=== PATIENT | male | born 1995 | race Caucasian/White ===

== ENCOUNTER 2017-07-06 18:18 | Emergency (ER) | payer SELFPAY ==
[2017-07-06 18:38] VITALS: PULSE 68
[2017-07-06] MEDS ORDERED: SODIUM CHLORIDE 0.9% 1,000 ML IV STA (18:52)
--- NOTE | 2017-07-06 19:05 | ED ---
Extremity Problem HPI - General Chief complaint: Extremity Problem,Nontraumatic Stated complaint: Poss Blood Clot Time Seen by Provider: 07/06/17 18:36 Source: patient Mode of arrival: ambulatory Limitations: no limitations - History of Present Illness Initial comments: 22-year-old male patient presents for evaluation of right calf pain and cramping. Patient states he has had this pain for the last 2 days. Patient states he had sudden onset of a sharp leg cramp 2 days ago, states that he did have to stretch and work it out. He states he has been having pain and problems with the leg since then. States that the pain is worse in the morning. States that his left calf is becoming more weak as he is compensating for the pain in the right. Patient does report bruising over the anterior lower leg, but denies any known injury. Sates he does lift heavy things and moves a lot of boxes at work and it is possible that he hit it on something there. Patient states he did have diarrhea for 2 days last week. He states he has felt dehydrated and has been trying to increase his liquids more. He also reports a pain to the left side of his neck, that worsens when he turns his head. He states this lasted approximately 40 minutes and has resolved at this time. Patient denies any recent rash, fever, chills, shortness breath, chest pain, palpitations, abdominal pain, nausea, vomiting, back pain, numbness, tingling, dizziness, weakness, hematuria, dysuria, urinary urgency, urinary frequency, headache, visual changes, or any other complaints. - Related Data Home Medications Medication Instructions Recorded Confirmed No Known Home Medications [No 07/06/17 07/06/17 Known Home Medications] Allergies Allergy/AdvReac Type Severity Reaction Status Date / Time No Known Allergies Allergy Verified 07/06/17 19:08 Review of Systems ROS Statement: Those systems with pertinent positive or pertinent negative responses have been documented in the HPI. ROS Other: All systems not noted in ROS Statement are negative. Past Medical History Past Medical History: No Reported History History of Any Multi-Drug Resistant Organisms: None Reported Past Surgical History: No Surgical Hx Reported Past Psychological History: No Psychological Hx Reported Smoking Status: Never smoker Past Alcohol Use History: None Reported Past Drug Use History: None Reported General Exam Limitations: no limitations General appearance: alert, in no apparent distress, other (This is a developed, thin-appearing, adult male in no acute distress. Vital signs upon presentation her temperature 98.0F, pulse 68, respirations 18, blood pressure 142/83, pulse ox 97% on room air) Eye exam: Present: normal appearance, PERRL, EOMI. Absent: scleral icterus, conjunctival injection, periorbital swelling ENT exam: Present: normal exam, normal oropharynx, mucous membranes moist Neck exam: Present: normal inspection. Absent: tenderness, meningismus, lymphadenopathy Respiratory exam: Present: normal lung sounds bilaterally. Absent: respiratory distress, wheezes, rales, rhonchi, stridor Cardiovascular Exam: Present: regular rate, normal rhythm, normal heart sounds. Absent: systolic murmur, diastolic murmur, rubs, gallop, clicks Extremities exam: Present: full ROM, tenderness (Tenderness over the right calf) , normal capillary refill, other (Right anterior lower leg bruising and light brown to blue in color. Skin otherwise is pink, warm, and dry. Cap refill less than 3 seconds. Post tibial and pedal pulses 2+ and equal bilaterally. Temperature is uniform throughout the extremity and equal to the left. Range of motion of ankle and knee without difficulty or limitation.). Absent: pedal edema, joint swelling, calf tenderness Neurological exam: Present: alert, oriented X3, CN II-XII intact Psychiatric exam: Present: normal affect, normal mood Skin exam: Present: warm, dry, intact, normal color. Absent: rash Course Vital Signs 07/06/17 07/06/17 18:33 20:19 Temperature 98.0 F 97.9 F Pulse Rate 68 68 Respiratory 18 16 Rate Blood Pressure 142/83 133/80 O2 Sat by Pulse 97 98 Oximetry Medical Decision Making - Medical Decision Making 22-year-old male patient presented for evaluation of right calf cramping and pain 2 days. Patient was seen at urgent care and instructed to report here for ultrasound of the leg for possible DVT. Patient reported he did have diarrhea for 2 days, and has been feeling more tired and rundown than usual. Lab work was reviewed and was unremarkable. Ultrasound of the right lower extremity was performed was negative for any acute DVT. Patient was given IV fluids here, states he feels somewhat better. He will be discharged home to follow up with his primary care physician for recheck in 1-2 days. He is instructed to return here immediately for any new, worsening, or concerning symptoms. He verbalizes understanding and agrees with this plan. - Lab Data Result diagrams: 07/06/17 19:05 07/06/17 19:05 Lab Results 07/06/17 07/06/17 Range/Units 19:05 19:05 WBC 7.3 (4.0-11.0) k/uL RBC 5.10 (4.30-5.90) m/uL Hgb 16.3 (13.0-17.5) gm/dL Hct 48.9 (39.0-53.0) % MCV 95.8 (80.0-100.0) fL MCH 31.8 (25.0-35.0) pg MCHC 33.2 (31.0-37.0) g/dL RDW 11.6 (11.5-15.5) % Plt Count 224 (150-450) k/uL Neutrophils % 63 % Lymphocytes % 28 % Monocytes % 5 % Eosinophils % 1 % Basophils % 1 % Neutrophils # 4.6 (1.3-7.7) k/uL Lymphocytes # 2.1 (1.0-4.8) k/uL Monocytes # 0.4 (0-1.0) k/uL Eosinophils # 0.1 (0-0.7) k/uL Basophils # 0.0 (0-0.2) k/uL Sodium 142 (137-145) mmol/L Potassium 4.4 (3.5-5.1) mmol/L Chloride 106 (98-107) mmol/L Carbon Dioxide 24 (22-30) mmol/L Anion Gap 12 mmol/L BUN 13 (9-20) mg/dL Creatinine 0.94 (0.66-1.25) mg/dL Est GFR (MDRD) Af Amer >60 (>60 ml/min/1.73 sqM) Est GFR (MDRD) Non-Af >60 (>60 ml/min/1.73 sqM) Glucose 85 (74-99) mg/dL Calcium 9.8 (8.4-10.2) mg/dL Total Bilirubin 0.8 (0.2-1.3) mg/dL AST 31 (17-59) U/L ALT 47 (21-72) U/L Alkaline Phosphatase 80 (38-126) U/L Total Protein 8.0 (6.3-8.2) g/dL Albumin 5.0 (3.5-5.0) g/dL - Radiology Data Radiology results: report reviewed Ultrasound of the right lower extremity report reviewed in its entirety, impression by Dr. Rodriguez shows no ultrasound evidence for acute DVT in the right lower extremity. Disposition Clinical Impression: Muscle cramping Disposition: HOME SELF-CARE Condition: Good Instructions: Leg Cramps (ED) Additional Instructions: Increase fluids. Follow-up with her primary care physician for recheck in 1-2 days. Return here immediately for any new, worsening, or concerning symptoms. Referrals: None,Stated [Primary Care Provider] - 1-2 days Time of Disposition: 20:04
[2017-07-06 19:19] LABS: Basophils % (A) 1 %; CH 31.8; CHCM 33.3; Eosinophils # (A) 0.1 k/uL (0-0.7); Eosinophils % (A) 1 %; HCT 48.9 % (39.0-53.0); HDW 2.17; HGB 16.3 gm/dL (13.0-17.5); Luc # (Auto) 0.12; Luc % (Auto) 2; Lymphocytes # (A) 2.1 k/uL (1.0-4.8); Lymphocytes % (A) 28 %; MCH 31.8 pg (25.0-35.0); MCHC 33.2 g/dL (31.0-37.0); MCV 95.8 fL (80.0-100.0); Mean Platelet Volume 9.4; Monocytes # (A) 0.4 k/uL (0-1.0); Monocytes % (A) 5 %; Neutrophils # (A) 4.6 k/uL (1.3-7.7); Neutrophils % (A) 63 %; RDW 11.6 % (11.5-15.5); WBC 7.3 k/uL (4.0-11.0); WBC (Perox) 7.08
[2017-07-06 19:32] LABS: ALT 47 U/L (21-72); AST 31 U/L (17-59); Alkaline Phosphatase 80 U/L (38-126); Anion Gap 12 mmol/L; Blood Urea Nitrogen 13 mg/dL (9-20); Calcium 9.8 mg/dL (8.4-10.2); Carbon Dioxide 24 mmol/L (22-30); Chloride 106 mmol/L (98-107); Glucose 85 mg/dL (74-99); Non-African American GFR(MDRD) >60 (>60 ml/min/1.73 sqM); Potassium 4.4 mmol/L (3.5-5.1); Sodium 142 mmol/L (137-145); Total Bilirubin 0.8 mg/dL (0.2-1.3)
--- NOTE | 2017-07-06 19:52 | US ---
EXAMINATION TYPE: US venous doppler duplex LE RT DATE OF EXAM: 07/06/2017 6:54 PM COMPARISON: NONE CLINICAL HISTORY: Pain. rt leg cramps SIDE PERFORMED: Right TECHNIQUE: The lower extremity deep venous system is examined utilizing real time linear array sonog ame with graded compression, doppler sonography and color-flow sonography. VESSELS IMAGED: External Iliac Vein (EIV) Common Femoral Vein Deep Femoral Vein Greater Saphenous Vein * Femoral Vein Popliteal Vein Small Saphenous Vein * Proximal Calf Veins (* superficial vessels) Right Leg: Negative for DVT Grayscale, color doppler, spectral doppler imaging performed of the deep veins of the right lower ext remity. There is normal flow, compressibility, vascular waveforms. IMPRESSION: No ultrasound evidence for acute DVT in the right lower extremity.
[2017-07-06 20:20] VITALS: BP 133/80; RESP 16; TEMP 97.9
== END 2017-07-06 20:20 | disposition home or self-care (01) ==
LOC: EC 18:18
DX: M79.604 Pain in right leg (principal)
CPT/HCPCS: 36415; 80053; 85025; 96360; 99283

== ENCOUNTER 2018-06-01 13:53 | Emergency (ER) | payer BC ==
[2018-06-01] MEDS ORDERED: IBUPROFEN 800 MG TAB PO STA (15:18)
[2018-06-01] MEDS ORDERED: DEXAMETHASONE 4 MG TAB PO STA (15:18)
--- NOTE | 2018-06-01 15:22 | ED ---
General Adult HPI - General Chief complaint: Fever Stated complaint: Fever/103 Source: patient Mode of arrival: ambulatory Limitations: no limitations - History of Present Illness Initial comments: Dictation was produced using [employer] dictation software. please excuse any grammatical, word or spelling errors. Chief Complaint: 23-year-old malepast medical history presents with fever and sore throat 3 days. History of Present Illness: Patient states he's noted the symptoms for the past 3 days. He complains of mild sore throat with some drainage denies any cough. He does also complain of lymphadenopathy. The ROS documented in this emergency department record has been reviewed and confirmed by me. Those systems with pertinent positive or negative responses have been documented in the HPI. All other systems are other negative and/or noncontributory. - Related Data Previous Rx's Medication Instructions Recorded Ibuprofen [Motrin] 600 mg PO Q6HR PRN #24 tab 06/01/18 Penicillin V Potassium [Pen Vee K] 500 mg PO BID #20 tablet 06/01/18 Allergies Allergy/AdvReac Type Severity Reaction Status Date / Time No Known Allergies Allergy Verified 06/01/18 14:02 Review of Systems ROS Statement: Those systems with pertinent positive or pertinent negative responses have been documented in the HPI. ROS Other: All systems not noted in ROS Statement are negative. Past Medical History Past Medical History: No Reported History History of Any Multi-Drug Resistant Organisms: None Reported Past Surgical History: No Surgical Hx Reported Past Psychological History: No Psychological Hx Reported Smoking Status: Never smoker Past Alcohol Use History: None Reported Past Drug Use History: None Reported General Exam - General Exam Comments Initial Comments: PHYSICAL EXAM: General Impression: Alert and oriented x3, not in acute distress HEENT: Normocephalic atraumatic, extra-ocular movements intact, pupils equal and reactive to light bilaterally, dry mucous membranes, bilateral tonsillar exudates Cardiovascular: Heart regular rate and rhythm, S1&S2 audible, no murmurs, rubs or gallops Chest: Lungs clear to auscultation bilaterally, no rhonchi, no wheeze, no rales Abdomen: Bowel sounds present, abdomen soft, non-tender, non-distended, no organomegaly Musculoskeletal: Pulses present and equal in all extremities, no peripheral edema Motor: Power 5/5 bilaterally, no focal deficits noted Neurological: CN II-XII grossly intact, no focal motor or sensory deficits noted Skin: Intact with no visualized rashes Psych: Normal affect and mood Limitations: no limitations Course Vital Signs 06/01/18 13:59 Temperature 102.5 F H Pulse Rate 110 H Respiratory 18 Rate Blood Pressure 128/71 O2 Sat by Pulse 95 Oximetry Medical Decision Making - Medical Decision Making ED course:-year-old male with clinical presentation consistent with strep pharyngitis. Centor criteria is high. No indication for rapid strep testing. He will receive antibiotics. Vital signs upon arrival shows temperature 102.5, heart rate of 110. Patient given steroids and Motrin for fever and throat pain. Patient reevaluated with improvement of symptoms. He is discharged with prescription for antibiotics, Motrin. Advised follow [facility] primary care physician upon discharge. Patient understandable agreeable to plan. Discussed with patient that his symptoms may represent viral pharyngitis Megace symptoms should be self-limiting. Or less, he is told to follow-up with his primary care physician. Disposition Clinical Impression: Pharyngitis Disposition: HOME SELF-CARE Condition: Good Instructions: Fever in Adults (ED) Prescriptions: Ibuprofen [Motrin] 600 mg PO Q6HR PRN #24 tab PRN Reason: Fever Penicillin V Potassium [Pen Vee K] 500 mg PO BID #20 tablet Is patient prescribed a controlled substance at d/c from ED?: No Referrals: None,Stated [Primary Care Provider] - 1-2 days Time of Disposition: 15:34
[2018-06-01 15:47] VITALS: BP 130/62; PULSE 104; RESP 16; TEMP 101.9
== END 2018-06-01 16:00 | disposition home or self-care (01) ==
LOC: EC 13:53
DX: J02.9 Acute pharyngitis, unspecified (principal); R50.9 Fever, unspecified
CPT/HCPCS: 99283; J8540

== ENCOUNTER 2020-04-21 21:37 | Emergency (ER) | payer BC, OTHER ==
[2020-04-21 21:42] VITALS: RESP 18; TEMP 98.6
[2020-04-21 22:35] LABS: Basophils % (A) 1 %; Eosinophils # (A) 0.6 k/uL (0-0.7); Eosinophils % (A) 7 %; HCT 43.7 % (39.0-53.0); HGB 14.3 gm/dL (13.0-17.5); Lymphocytes # (A) 2.2 k/uL (1.0-4.8); Lymphocytes % (A) 29 %; MCH 30.8 pg (25.0-35.0); MCHC 32.6 g/dL (31.0-37.0); MCV 94.4 fL (80.0-100.0); Mean Platelet Volume 9.5; Monocytes # (A) 0.3 k/uL (0-1.0); Monocytes % (A) 4 %; Neutrophils # (A) 4.3 k/uL (1.3-7.7); Neutrophils % (A) 57 %; Platelet Count 215 k/uL (150-450); RBC 4.63 m/uL (4.30-5.90); WBC 7.7 k/uL (3.8-10.6)
[2020-04-21 22:48] LABS: ALT 17 U/L (4-49); AST 21 U/L (17-59); African American GFR (CKD) >90 (>60 ml/min/1.73 sqM); Albumin 4.4 g/dL (3.5-5.0); Alkaline Phosphatase 79 U/L (38-126); Anion Gap 8 mmol/L; Blood Urea Nitrogen 11 mg/dL (9-20); Calcium 8.9 mg/dL (8.4-10.2); Carbon Dioxide 25 mmol/L (22-30); Chloride 105 mmol/L (98-107); Glucose 100 mg/dL (74-99); Non-African American GFR(CKD) >90 (>60 ml/min/1.73 sqM); Potassium 4.2 mmol/L (3.5-5.1); Sodium 138 mmol/L (137-145); Total Bilirubin 0.3 mg/dL (0.2-1.3); Total Protein 6.7 g/dL (6.3-8.2)
--- NOTE | 2020-04-21 23:51 | ED ---
General Adult HPI - General Chief complaint: Neuro Symptoms/Deficit Stated complaint: chin numbness Time Seen by Provider: 04/21/20 21:51 Source: patient Mode of arrival: ambulatory Limitations: no limitations - History of Present Illness Initial comments: 25-year-old male patient presents to the emergency department today for evaluation of numbness and tingling to the left side of his chin. Patient states this started approximately an hour prior to arrival. States it is on the left side of his chin and going down into his neck. Denies any facial droop. He denies numbness or tingling to his tongue or lips. Denies any numbness, tingling, weakness to his extremities. He is also reporting cough with nasal congestion as well as body aches. States that he has been having some intermittent chest pain. States today he felt a pop in his chest and it did seem to ease the pain somewhat. Denies taking any medication for his symptoms. Denies any recent head injury. Denies any new medications. Patient denies any recent rash, fever, chills, abdominal pain, nausea, vomiting, diarrhea, constipation, back pain, numbness, tingling, dizziness, weakness, hematuria, dysuria, urinary urgency, urinary frequency, headache, visual changes, or any other complaints. - Related Data Previous Rx's Medication Instructions Recorded Ibuprofen [Motrin] 600 mg PO Q6HR PRN #24 tab 06/01/18 Penicillin V Potassium [Pen Vee K] 500 mg PO BID #20 tablet 06/01/18 Allergies Allergy/AdvReac Type Severity Reaction Status Date / Time No Known Allergies Allergy Verified 04/21/20 21:42 Review of Systems ROS Statement: Those systems with pertinent positive or pertinent negative responses have been documented in the HPI. ROS Other: All systems not noted in ROS Statement are negative. Past Medical History Past Medical History: No Reported History Additional Past Medical History / Comment(s): pericarditis History of Any Multi-Drug Resistant Organisms: None Reported Past Surgical History: No Surgical Hx Reported Past Psychological History: No Psychological Hx Reported Smoking Status: Never smoker Past Alcohol Use History: Occasional Past Drug Use History: None Reported General Exam Limitations: no limitations General appearance: alert, in no apparent distress, other (This is a well- developed, well-nourished adult male patient in no acute distress. Vital signs upon presentation are temperature 98.6F, pulse 76, respirations 18, blood pressure 130/87, pulse ox 97% on room air.) Eye exam: Present: normal appearance, PERRL, EOMI. Absent: scleral icterus, conjunctival injection, periorbital swelling Respiratory exam: Present: normal lung sounds bilaterally. Absent: respiratory distress, wheezes, rales, rhonchi, stridor Cardiovascular Exam: Present: regular rate, normal rhythm, normal heart sounds. Absent: systolic murmur, diastolic murmur, rubs, gallop, clicks GI/Abdominal exam: Present: soft, normal bowel sounds. Absent: distended, tenderness, guarding, rebound, rigid Neurological exam: Present: alert, oriented X3, CN II-XII intact Expanded Patient oriented to: Present: person, place, time Cranial nerves: EOM's Intact: Normal, Tongue Deviation: Normal, Nystagmus: Normal, Facial Sensation: Abnormal Left Motor strength exam: RUE: 5, LUE: 5, RLE: 5, LLE: 5 Psychiatric exam: Present: normal affect, normal mood Skin exam: Present: warm, dry, intact, normal color. Absent: rash Course Vital Signs 04/21/20 04/22/20 21:38 00:14 Temperature 98.6 F Pulse Rate 76 72 Respiratory 18 18 Rate Blood Pressure 130/87 125/78 O2 Sat by Pulse 97 98 Oximetry EKG Findings - EKG Comments: EKG Findings:: EKG obtained at 2223 shows normal sinus rhythm with a sinus arrhythmia. Ventricular rate is 67, VT interval 146, QRS duration 82, QT 374, QTC 395. No evidence of ST elevation or depression. Medical Decision Making - Medical Decision Making 25-year-old male patient presents to the emergency department today for evaluation of tingling to the left chin. Physical examination is unremarkable. He is neurologically intact focal deficits. He is otherwise healthy. Labs reviewed and are unremarkable. EKG shows normal sinus rhythm. Lungs are clear to auscultation. We did test for COVID-19. Patient does not have insurance and was quite concerned about the cost of his visit. For this reason along with his normal neurologic exam we did hold CT at this time. He will be discharged to follow up with this primary care physician for recheck in 1-2 days. We did discuss return parameters in detail, he is urged to return if his symptoms worsen or change, we did perform computed tomography scan at that time. He verbalizes understanding and agrees this plan. - Lab Data Result diagrams: 04/21/20 22:15 04/21/20 22:15 Lab Results 04/21/20 04/21/20 04/21/20 Range/Units 22:15 22:15 22:15 WBC 7.7 (3.8-10.6) k/uL RBC 4.63 (4.30-5.90) m/uL Hgb 14.3 (13.0-17.5) gm/dL Hct 43.7 (39.0-53.0) % MCV 94.4 (80.0-100.0) fL MCH 30.8 (25.0-35.0) pg MCHC 32.6 (31.0-37.0) g/dL RDW 12.0 (11.5-15.5) % Plt Count 215 (150-450) k/uL Neutrophils % 57 % Lymphocytes % 29 % Monocytes % 4 % Eosinophils % 7 % Basophils % 1 % Neutrophils # 4.3 (1.3-7.7) k/uL Lymphocytes # 2.2 (1.0-4.8) k/uL Monocytes # 0.3 (0-1.0) k/uL Eosinophils # 0.6 (0-0.7) k/uL Basophils # 0.0 (0-0.2) k/uL Sodium 138 (137-145) mmol/L Potassium 4.2 (3.5-5.1) mmol/L Chloride 105 (98-107) mmol/L Carbon Dioxide 25 (22-30) mmol/L Anion Gap 8 mmol/L BUN 11 (9-20) mg/dL Creatinine 1.01 (0.66-1.25) mg/dL Est GFR (CKD-EPI)AfAm >90 (>60 ml/min/1.73 sqM) Est GFR (CKD-EPI)NonAf >90 (>60 ml/min/1.73 sqM) Glucose 100 H (74-99) mg/dL Calcium 8.9 (8.4-10.2) mg/dL Total Bilirubin 0.3 (0.2-1.3) mg/dL AST 21 (17-59) U/L ALT 17 (4-49) U/L Alkaline Phosphatase 79 (38-126) U/L Troponin I <0.012 (0.000-0.034) ng/mL Total Protein 6.7 (6.3-8.2) g/dL Albumin 4.4 (3.5-5.0) g/dL TSH 4.600 (0.465-4.680) mIU/L Disposition Clinical Impression: Chest pain, Paresthesia Disposition: HOME SELF-CARE Condition: Good Instructions (If sedation given, give patient instructions): Chest Pain (ED), Paresthesia (ED) Additional Instructions: Increase fluids. Rest. Take ibuprofen for pain control. Follow-up with your primary care physician for recheck in 1-2 days. Return to the emergency department immediately for any new, worsening, or concerning symptoms. Is patient prescribed a controlled substance at d/c from ED?: No Referrals: None,Stated [Primary Care Provider] - 1-2 days Time of Disposition: 23:51
[2020-04-22 00:15] VITALS: BP 125/78; PULSE 72
== END 2020-04-22 00:16 | disposition home or self-care (01) ==
LOC: EC 21:37
DX: R07.9 Chest pain, unspecified (principal); R20.2 Paresthesia of skin; R20.0 Anesthesia of skin; R05 Cough; R09.81 Nasal congestion; Z20.828 Contact with and (suspected) exposure to other viral communicable diseases; Z86.79 Personal history of other diseases of the circulatory system
CPT/HCPCS: 36415; 93005; 80053; 84443; 84484; 85025; 99284; U0003